=== PATIENT | male | born 1945 | race Caucasian/White ===

== ENCOUNTER 2016-10-19 11:45 | Emergency (ER) | payer MEDICARE, OTHER ==
[~2016-10-19] VITALS: Ht 190.5 cm; Wt 70.0 kg
[2016-10-19 11:46] VITALS: BP 157/82; PULSE 69; RESP 16; TEMP 98.1; O2SAT 96
[2016-10-19] MEDS ORDERED: FLUT50SP EACH NARE (12:34)
[2016-10-19] MEDS ORDERED: CLON0.5T PO (12:34)
[2016-10-19] MEDS ORDERED: AMLO5TAB2 PO (12:34)
[2016-10-19] MEDS ORDERED: METO50TA11 PO (12:35)
[2016-10-19] MEDS ORDERED: REME15TA PO ×2 (12:35→13:04)
[2016-10-19] MEDS ORDERED: IPRA0.06 EACH NARE (12:35)
[2016-10-19] MEDS ORDERED: ZOLO100T PO ×2 (12:35→13:04)
[2016-10-19] MEDS ORDERED: ROSU1TAB10 PO (12:35)
[2016-10-19] MEDS ORDERED: GLIM4TAB PO (12:35)
[2016-10-19] MEDS ORDERED: LOSA100T PO (12:35)
[2016-10-19] MEDS ORDERED: NITR1SUB3 SL (12:35)
[2016-10-19] MEDS ORDERED: SYMB80AE INH (12:35)
[2016-10-19] MEDS ORDERED: PIOG30TA4 PO (12:35)
[2016-10-19] MEDS ORDERED: OMEP20TA PO (12:35)
[2016-10-19] MEDS ORDERED: TRAM50TA PO (12:35)
[2016-10-19] MEDS ORDERED: METF750T PO (12:35)
--- NOTE | 2016-10-19 12:42 | PD ---
HPI Chief Complaint: Depression Time Seen by Provider: 12:39 Travel History International Travel<30 days: No Contact w/Intl Traveler<30days: No Traveled to known affect area: No History of Present Illness HPI 71 year old male presents to the emergency department voluntarily for psychiatric evaluation. Patient states he has been depressed, lack of energy since before . He is in [place] for the month of September and October [place]. He states he saw a psychiatrist back home to put him on Zoloft, Remeron, clonazepam. However, he states that these medications are not working and he would like to have his medications adjusted. Patient does have a history of diabetes, hyperlipidemia, hypertension , asthma. He denies any medical complaints at this time. Patient is alert and oriented to person, place, time and answers all questions appropriately. She denies any suicidal or homicidal ideations. PFSH Past Medical History Cardiovascular Problems: Yes Diabetes: Yes Diminished Hearing: No Respiratory: Yes Tetanus Vaccination: Unknown Social History Alcohol Use: No Tobacco Use: No Substance Use: No Allergies-Medications (Allergen,Severity, Reaction): Coded Allergies: No Known Allergies (Unverified , 10/19/16) Reported Meds & Prescriptions Reported Meds & Active Scripts Active Klonopin (Clonazepam) 0.5 Mg Tab 0.5 Mg PO BID Zoloft (Sertraline HCl) 100 Mg Tab 100 Mg PO BID Remeron (Mirtazapine) 15 Mg Tab 15 Mg PO HS Reported Zoloft (Sertraline HCl) 100 Mg Tab 150 Mg PO DAILY Tramadol (Tramadol HCl) 50 Mg Tab 50 Mg PO Q4H PRN Symbicort Inh (Budesonide/Formoterol Fumarate) 80-4.5 Mcg/Act Aero 1 Puff INH Q12HR Rosuvastatin (Rosuvastatin Calcium) 40 Mg Tab 40 Mg PO DAILY Pioglitazone (Pioglitazone HCl) 30 Mg Tab 30 Mg PO DAILY Omeprazole 20 Mg Tab 20 Mg PO DAILY Nitroglycerin SL (Nitroglycerin) 0.4 Mg Subl 0.4 Mg SL DIRECTED PRN ONE TABLET UNDER THE TONGUE NEEDED FOR CHEST PAIN, MAY REPEAT EVERY FIVE MINUTES FOR A TOTAL OF 3 DOSES OR CALL 911 IF NO RELIEF Metoprolol Succinate ER 24 HR (Metoprolol Succinate) 50 Mg Tab 50 Mg PO DAILY Metformin ER (Metformin HCl) 750 Mg Emy 750 Mg PO DAILY With evening meal Losartan (Losartan Potassium) 100 Mg Tab 100 Mg PO DAILY Ipratropium Nasal 0.06% [place] 1 [place] EACH NARE QID Glimepiride 4 Mg Tab 4 Mg PO DAILY Take with breakfast or first main meal Fluticasone Nasal [place] 50 Mcg/Act Naspr 50 Mcg EACH NARE BID 50 mcg/spray Amlodipine (Amlodipine Besylate) 5 Mg Tab 5 Mg PO DAILY Clonazepam 0.5 Mg Tab 0.5 Mg PO DAILY Review of Systems Except as stated in HPI: all other systems reviewed are Neg Physical Exam Narrative GENERAL: Well-developed well-nourished elderly male patient, ambulatory. Afebrile. SKIN: Warm and dry. HEAD: Normocephalic. Atraumatic. EYES: No scleral icterus. No injection or drainage. NECK: Supple, trachea midline. No JVD or lymphadenopathy. CARDIOVASCULAR: Regular rate and rhythm without murmurs, gallops, or rubs. RESPIRATORY: Breath sounds equal bilaterally. No accessory muscle use. Lungs sounds are clear to auscultation. GASTROINTESTINAL: Abdomen soft, non-tender, nondistended. MUSCULOSKELETAL: No cyanosis, or edema. BACK: Nontender without obvious deformity. No CVA tenderness. PSYCHIATRIC: No delusional thought processes. No hallucinations. Data Data Last Documented VS Vital Signs Date Time Temp Pulse Resp B/P Pulse Ox O2 Delivery O2 Flow Rate FiO2 10/19/16 11:46 98.1 69 16 157/82 96 Room Air Orders Psych Screen (10/19/16 12:03) Complete Blood Count With Diff (10/19/16 12:07) Comprehensive Metabolic Panel (10/19/16 12:07) Urinalysis - C+S If Indicated (10/19/16 12:07) Drug Screen, Random Urine (10/19/16 12:07) Alcohol (Ethanol) (10/19/16 12:07) Diet Regular Basic (10/19/16 Lunch) Labs Laboratory Tests Test 10/19/16 10/19/16 12:37 12:50 White Blood Count 6.8 TH/MM3 Red Blood Count 5.45 MIL/MM3 Hemoglobin 15.0 GM/DL Hematocrit 42.6 % Mean Corpuscular Volume 78.2 FL Mean Corpuscular Hemoglobin 27.6 PG Mean Corpuscular Hemoglobin 35.3 % Concent Red Cell Distribution Width 15.9 % Platelet Count 116 TH/MM3 Mean Platelet Volume 8.6 FL Neutrophils (%) (Auto) 65.9 % Lymphocytes (%) (Auto) 25.4 % Monocytes (%) (Auto) 7.5 % Eosinophils (%) (Auto) 0.7 % Basophils (%) (Auto) 0.5 % Neutrophils # (Auto) 4.5 TH/MM3 Lymphocytes # (Auto) 1.7 TH/MM3 Monocytes # (Auto) 0.5 TH/MM3 Eosinophils # (Auto) 0.0 TH/MM3 Basophils # (Auto) 0.0 TH/MM3 CBC Comment DIFF FINAL Differential Comment Sodium Level 140 MEQ/L Potassium Level 4.2 MEQ/L Chloride Level 107 MEQ/L Carbon Dioxide Level 25.9 MEQ/L Anion Gap 7 MEQ/L Blood Urea Nitrogen 19 MG/DL Creatinine 0.94 MG/DL Estimat Glomerular Filtration 79 ML/MIN Rate Random Glucose 86 MG/DL Calcium Level 9.8 MG/DL Total Bilirubin 1.0 MG/DL Aspartate Amino Transf 30 U/L (AST/SGOT) Alanine Aminotransferase 57 U/L (ALT/SGPT) Alkaline Phosphatase 66 U/L Total Protein 7.8 GM/DL Albumin 4.5 GM/DL Ethyl Alcohol Level LESS THAN 3 MG/DL Urine Color YELLOW Urine Turbidity HAZY Urine pH 6.0 Urine Specific [place] 1.028 Urine Protein TRACE mg/dL Urine Glucose (UA) NEG mg/dL Urine Ketones NEG mg/dL Urine Occult Blood NEG Urine Nitrite NEG Urine Bilirubin NEG Urine Urobilinogen LESS THAN 2.0 MG/DL Urine Leukocyte Esterase NEG Urine RBC LESS THAN 1 /hpf Urine WBC 3 /hpf Urine Mucus MANY /lpf Microscopic Urinalysis Comment CULT NOT INDICATED Urine Opiates Screen NEG Urine Barbiturates Screen NEG Urine Amphetamines Screen NEG Urine Benzodiazepines Screen POS Urine Cocaine Screen NEG Urine Cannabinoids Screen NEG MDM Medical Decision Making Medical Screen Exam Complete: Yes Emergency Medical Condition: Yes Medical Record Reviewed: Yes Differential Diagnosis Depression versus anxiety versus dementia Narrative Course 71-year-old male presents to the emergency department requesting to speak to a psychiatrist stating that his medications are not working. Patient is from out of town and is in [place] for the month of September and October. Patient has no medical complaints at this time. Physical exam is reassuring. CBC, CMP, alcohol level, UDS, UA are ordered and pending. CBC shows no acute abnormality. CMP shows no acute abnormality. Alcohol level is less than 3. UDS is positive for benzodiazepines. UA shows no evidence of acute infection. Patient is medically cleared for psychiatric screening and disposition. Mental health screening discussed with the patient. Psychiatric screen ordered. Diagnosis Primary Impression: Major depression single episode, in partial remission Additional Instructions: Patient is medically cleared for psychiatric screening and disposition. Scripts Clonazepam (Klonopin)0.5 Mg Tab0.5 Mg PO BID #60 TAB Ref 0 Prov:Renato Olsen MD 10/19/16 Sertraline (Zoloft)100 Mg Dod281 Mg PO BID #60 TAB Ref 0 Prov:Renato Olsen MD 10/19/16 Mirtazapine (Remeron)15 Mg Tab15 Mg PO HS #30 TAB Ref 0 Prov:Renato Olsen MD 10/19/16 Condition: Stable Laisha Conteh Oct 19, 2016 12:42
[2016-10-19 12:51] LABS: AUTOMATED NEUTROPHIL # 4.5 TH/MM3 (1.8-7.7); BASOPHIL % 0.5 % (0.0-2.0); EOSINOPHIL % 0.7 % (0.0-4.0); HEMATOCRIT 42.6 % (39.0-51.0); HEMO FLAGS DIFF FINAL; LYMPH % 25.4 % (9.0-44.0); LYMPHOCYTE # 1.7 TH/MM3 (1.0-4.8); MEAN CELL VOLUME 78.2 FL (80.0-100.0); MEAN CORPUSCULAR HEMOGLOBIN 27.6 PG (27.0-34.0); MEAN CORPUSCULAR HGB CONC 35.3 % (32.0-36.0); MONO % 7.5 % (0.0-8.0); NEUT % 65.9 % (16.0-70.0); PLATELET COUNT 116 TH/MM3 (150-450); RED BLOOD COUNT 5.45 MIL/MM3 (4.50-5.90); RED CELL DISTRIBUTION WIDTH 15.9 % (11.6-17.2); WHITE BLOOD COUNT 6.8 TH/MM3 (4.0-11.0)
--- NOTE | 2016-10-19 13:02 | PD ---
History of Present Illness Chief Complaint: Depression Time Seen by Provider: 12:45 Travel History International Travel<30 Days: No Contact w/Intl Traveler<30days: No Known affected area: No Legal Status Legal Status: Voluntary History of Present Illness: This is a 71-year-old male with a several month history of symptoms of depression. The patient does not feel that his antidepressant medicines are working terribly well. He comes in for a treatment evaluation voluntarily. He is not suicidal or homicidal. He is not psychotic. He does describe symptoms of diminished energy, depressed mood, anhedonia, social withdrawal, diminished self-esteem, feelings of helplessness, etc. This physician recommended an increased dose of Zoloft to 200 mg per day because the patient is a large man. He has not given the Remeron enough time to work and was told this. Finally, he is urged to continue on the Klonopin for his anxiety. He has a supportive and his psychiatrist is in [facility]. Patient plans to be here through October. [facility] Past Medical History Cardiovascular Problems: Yes Diabetes: Yes Diminished Hearing: No Respiratory: Yes Tetanus Vaccination: Unknown Psychiatric History Psychiatric History Hx Psychiatric Treatment: @ 1993-depression [facility] History of Inpatient Treatment: No Social History Hx Alcohol Use: No Hx Tobacco Use: No Hx Substance Use: No Other Substances Used: Pt denied Hx of Substance Use Treatment: No Allergies-Medications (Allergen,Severity, Reaction): Coded Allergies: No Known Allergies (Unverified , 10/19/16) Reported Meds & Prescriptions Reported Meds & Active Scripts Active Reported Zoloft (Sertraline HCl) 100 Mg Tab 150 Mg PO DAILY Remeron (Mirtazapine) 15 Mg Tab 15 Mg PO HS Tramadol (Tramadol HCl) 50 Mg Tab 50 Mg PO Q4H PRN Symbicort Inh (Budesonide/Formoterol Fumarate) 80-4.5 Mcg/Act Aero 1 Puff INH Q12HR Rosuvastatin (Rosuvastatin Calcium) 40 Mg Tab 40 Mg PO DAILY Pioglitazone (Pioglitazone HCl) 30 Mg Tab 30 Mg PO DAILY Omeprazole 20 Mg Tab 20 Mg PO DAILY Nitroglycerin SL (Nitroglycerin) 0.4 Mg Subl 0.4 Mg SL DIRECTED PRN ONE TABLET UNDER THE TONGUE NEEDED FOR CHEST PAIN, MAY REPEAT EVERY FIVE MINUTES FOR A TOTAL OF 3 DOSES OR CALL 911 IF NO RELIEF Metoprolol Succinate ER 24 HR (Metoprolol Succinate) 50 Mg Tab 50 Mg PO DAILY Metformin ER (Metformin HCl) 750 Mg Emy 750 Mg PO DAILY With evening meal Losartan (Losartan Potassium) 100 Mg Tab 100 Mg PO DAILY Ipratropium Nasal 0.06% [place] 1 [place] EACH NARE QID Glimepiride 4 Mg Tab 4 Mg PO DAILY Take with breakfast or first main meal Fluticasone Nasal [place] 50 Mcg/Act Naspr 50 Mcg EACH NARE BID 50 mcg/spray Amlodipine (Amlodipine Besylate) 5 Mg Tab 5 Mg PO DAILY Clonazepam 0.5 Mg Tab 0.5 Mg PO DAILY Review of Systems ROS Limitations: Clinical Condition Except as stated in HPI: all other systems reviewed are Neg Exam Exam Limitations: Clinical Condition Alert: Yes [place]: Person, Place, Date, Situation Mood: Calm Affect: Restricted Speech: Clear, Logical Eye Contact: Normal Memory Intact: Immediate, Recent, Remote [facility] Medical Decision Making Medical Record Reviewed: Yes Assessment/Plan 71-year-old man with [place]. depression, single episode. He is currently continuing to suffer symptoms of depression and anxiety. [place]. This physician feels that medication titration is in order and the patient agrees. Therefore his Zoloft was increased. His Remeron and clonazepam were renewed. He will be followed when he returns to [place]. Orders Psych Screen (10/19/16 12:03) Complete Blood Count With Diff (10/19/16 12:07) Comprehensive Metabolic Panel (10/19/16 12:07) Urinalysis - C+S If Indicated (10/19/16 12:07) Drug Screen, Random Urine (10/19/16 12:07) Alcohol (Ethanol) (10/19/16 12:07) Diet Regular Basic (10/19/16 Lunch) Results Vital Signs Date Time Temp Pulse Resp B/P Pulse Ox O2 Delivery O2 Flow Rate FiO2 10/19/16 11:46 98.1 69 16 157/82 96 Room Air Laboratory Tests Test 10/19/16 12:37 White Blood Count 6.8 Red Blood Count 5.45 Hemoglobin 15.0 Hematocrit 42.6 Mean Corpuscular Volume 78.2 Mean Corpuscular Hemoglobin 27.6 Mean Corpuscular Hemoglobin 35.3 Concent Red Cell Distribution Width 15.9 Platelet Count 116 Mean Platelet Volume 8.6 Neutrophils (%) (Auto) 65.9 Lymphocytes (%) (Auto) 25.4 Monocytes (%) (Auto) 7.5 Eosinophils (%) (Auto) 0.7 Basophils (%) (Auto) 0.5 Neutrophils # (Auto) 4.5 Lymphocytes # (Auto) 1.7 Monocytes # (Auto) 0.5 Eosinophils # (Auto) 0.0 Basophils # (Auto) 0.0 CBC Comment DIFF FINAL Differential Comment Diagnosis Primary Impression: Major depression single episode, in partial remission Renato Olsen MD Oct 19, 2016 13:02
[2016-10-19] MEDS ORDERED: CLON.5 PO (13:04)
[2016-10-19 13:10] LABS: BLOOD, URINE NEG (NEG); GLUCOSE,URINE NEG (NEG); KETONE, URINE NEG (NEG); MUCUS URINE MANY /lpf (OCC); NITRITE,URINE NEG (NEG); URINE COLOR YELLOW (YELLW/STRAW)
[2016-10-19 13:11] LABS: COMMENT (UR) CULT NOT INDICATED; CULTURE IF INDICATED CULT NOT INDICATED
[2016-10-19 13:18] LABS: AMPHETAMINE, URINE NEG (NEG); BARBITURATES, URINE NEG (NEG); COCAINE, URINE NEG (NEG)
[2016-10-19 13:26] LABS: ANION GAP 7 MEQ/L (5-15); AST (GOT) 30 U/L (15-37); BICARBONATE 25.9 MEQ/L (21.0-32.0); BLOOD UREA NITROGEN 19 MG/DL (7-18); CHLORIDE 107 MEQ/L (98-107); GLOMERULAR FILTRATION RATE 79 ML/MIN (>89); POTASSIUM 4.2 MEQ/L (3.5-5.1); SODIUM (NA) 140 MEQ/L (136-145)
[2016-10-19 13:29] LABS: ALKALINE PHOSPHATASE 66 U/L (45-117); ALT (GPT) 57 U/L (12-78)
== END 2016-10-19 14:01 | disposition home or self-care (01) ==
LOC: NEPJ 11:45
DX: F32.4 Major depressive disorder, single episode, in partial remission (principal)
CPT/HCPCS: 80053; 80307; 81001; 85025; 99284